=== PATIENT | female | born 1985 | race Caucasian/White ===

== ENCOUNTER 2020-09-19 11:47 | Emergency (ER) | payer SELFPAY ==
[~2020-09-19] VITALS: Ht 154.9 cm; Wt 52.2 kg
--- NOTE | 2020-09-19 11:53 | ED Chest Pain ---
General Chief Complaint: Chest Pain Stated Complaint: DIZZINESS; FATIGUE; CHEST PAIN; ANXIETY; TINGLING Source: patient Exam Limitations: no limitations History of Present Illness Date Seen by Provider: Sep 19, 2020 Time Seen by Provider: 11:52 35-year-old female history of anxiety presents with chest pain. Patient states that the pain has been present intermittently for about 3 days. At its worst she rates it 5/10 in intensity, describes it as tightness across her chest and radiates down to her left arm. No associated nausea. Pain is nonreproducible, worse with exertion, better with rest. No recent falls or injuries. Patient denies any cardiac history other than palpitations for which she has had a normal EKG. No history of heart cath or stress test. Patient denies fevers, chills, cough, shortness of air, abdominal pain, nausea, vomiting, rash, hea dache. Patient also endorses some dizziness that is worse with standing up. On arrival patient is currently chest pain-free. When asked why she came today despite 3 days of pain she said she felt very different today. Allergies and Home Medications Allergies Coded Allergies: JORGEANo Known Allergies (Verified Allergy, Unknown, 08/10/06) Patient Home Medication List Home Medication List Reviewed: Yes Review of Systems Review of Systems Constitutional: No chills, No fever EENTM: No Blurred Vision Respiratory: Denies Cough, Denies Shortness of Air Cardiovascular: Chest Pain; Denies Edema, Denies Irregular Heart Rate; Lightheadedness; Denies Palpitations Gastrointestinal: Denies Abdominal Pain, Denies Nausea, Denies Vomiting Skin: No lesions, No rash Psychiatric/Neurological: Anxiety; Denies Headache All Other Systems Reviewed Negative Unless Noted: Yes Past Inzmqxu-Khuzzi-Yngcha Hx Patient Social History Alcohol Use: Rarely Uses Smoking Status: Current Everyday Smoker Alcohol Use?: Yes Past Medical History Anxiety Family Medical History Reviewed Nursing Family Hx Physical Exam Vital Signs Vital Signs - First Documented 09/19/20 11:50 Temp 36.8 Pulse 77 Resp 16 B/P (MAP) 143/88 (106) Pulse Ox 99 O2 Delivery Room Air Capillary Refill : Height, Weight, BMI Height: '" Weight: lbs. oz. kg; BMI Method: General Appearance: No Apparent Distress, WD/WN HEENT: PERRL/EOMI, Pharynx Normal Neck: Non Tender, Supple Respiratory: Chest Non Tender, Lungs Clear, Normal Breath Sounds, No Accessory Muscle Use, No Respiratory Distress Cardiovascular: Regular Rate, Rhythm, No Edema, No Gallop, No JVD, No Murmur Gastrointestinal: Normal Bowel Sounds, Non Tender, Soft Extremity: Normal Capillary Refill, Normal Inspection, Non Tender Neurologic/Psychiatric: Alert, Oriented x3 Skin: Normal Color, Warm/Dry Lymphatic: No Adenopathy Progress/Results/Core Measures Results/Orders Lab Results Laboratory Tests Test 09/19/20 12:00 09/19/20 12:40 Range/Units White Blood Count 4.9 4.3-11.0 10^3/uL Red Blood Count 4.15 L 4.35-5.85 10^6/uL Hemoglobin 13.2 11.5-16.0 G/DL Hematocrit 39 35-52 % Mean Corpuscular Volume 94 80-99 FL Mean Corpuscular Hemoglobin 32 25-34 PG Mean Corpuscular Hemoglobin Concent 34 32-36 G/DL Red Cell Distribution Width 11.5 10.0-14.5 % Platelet Count 224 130-400 10^3/uL Mean Platelet Volume 9.9 7.4-10.4 FL Immature Granulocyte % (Auto) 0 % Neutrophils (%) (Auto) 56 42-75 % Lymphocytes (%) (Auto) 31 12-44 % Monocytes (%) (Auto) 9 0-12 % Eosinophils (%) (Auto) 4 0-10 % Basophils (%) (Auto) 0 0-10 % Neutrophils # (Auto) 2.8 1.8-7.8 X 10^3 Lymphocytes # (Auto) 1.5 1.0-4.0 X 10^3 Monocytes # (Auto) 0.4 0.0-1.0 X 10^3 Eosinophils # (Auto) 0.2 0.0-0.3 10^3/uL Basophils # (Auto) 0.0 0.0-0.1 10^3/uL Immature Granulocyte # (Auto) 0.0 0.0-0.1 10^3/uL Prothrombin Time 12.7 12.2-14.7 SEC INR Comment 0.9 0.8-1.4 Activated Partial Thromboplast Time 27 24-35 SEC Sodium Level 140 135-145 MMOL/L Potassium Level 3.8 3.6-5.0 MMOL/L Chloride Level 107 98-107 MMOL/L Carbon Dioxide Level 25 21-32 MMOL/L Anion Gap 8 5-14 MMOL/L Blood Urea Nitrogen 12 7-18 MG/DL Creatinine 0.70 0.60-1.30 MG/DL Estimat Glomerular Filtration Rate > 60 BUN/Creatinine Ratio 17 Glucose Level 86 70-105 MG/DL Calcium Level 8.9 8.5-10.1 MG/DL Corrected Calcium 8.7 8.5-10.1 MG/DL Magnesium Level 1.8 1.6-2.4 MG/DL Total Bilirubin 0.9 0.1-1.0 MG/DL Aspartate Amino Transf (AST/SGOT) 13 5-34 U/L Alanine Aminotransferase (ALT/SGPT) 9 0-55 U/L Alkaline Phosphatase 57 40-136 U/L Troponin I < 0.30 <0.30 NG/ML Pro-B-Type Natriuretic Peptide 103.9 H <75.0 PG/ML Total Protein 7.3 6.4-8.2 GM/DL Albumin 4.3 3.2-4.5 GM/DL Lipase 32 8-78 U/L Urine Color STRAW Urine Clarity CLEAR Urine pH 6.0 5-9 Urine Specific [place] <=1.005 1.016-1.022 Urine Protein NEGATIVE NEGATIVE Urine Glucose (UA) NEGATIVE NEGATIVE Urine Ketones NEGATIVE NEGATIVE Urine Nitrite NEGATIVE NEGATIVE Urine Bilirubin NEGATIVE NEGATIVE Urine Urobilinogen 0.2 < = 1.0 MG/DL Urine Leukocyte Esterase 1+ H NEGATIVE Urine RBC (Auto) 3+ H NEGATIVE Urine RBC 0-2 /HPF Urine WBC 10-25 H /HPF Urine Squamous Epithelial Cells 5-10 /HPF Urine Crystals NONE /LPF Urine Bacteria FEW H /HPF Urine Casts NONE /LPF Urine Mucus NEGATIVE /LPF Urine Culture Indicated YES Urine Test NEGATIVE NEGATIVE Urine Opiates Screen NEGATIVE NEGATIVE Urine Oxycodone Screen NEGATIVE NEGATIVE Urine Methadone Screen NEGATIVE NEGATIVE Urine Propoxyphene Screen NEGATIVE NEGATIVE Urine Barbiturates Screen NEGATIVE NEGATIVE Ur Tricyclic Antidepressants Screen NEGATIVE NEGATIVE Urine Phencyclidine Screen NEGATIVE NEGATIVE Urine Amphetamines Screen NEGATIVE NEGATIVE Urine Methamphetamines Screen NEGATIVE NEGATIVE Urine Benzodiazepines Screen NEGATIVE NEGATIVE Urine Cocaine Screen NEGATIVE NEGATIVE Urine Cannabinoids Screen NEGATIVE NEGATIVE My Orders Orders - NINO THOMPSON MD Cbc With Automated Diff (09/19/20 12:02) Magnesium (09/19/20 12:02) Chest 1 View Ap/Pa Only (09/19/20 12:02) Ekg Tracing (09/19/20 12:02) Comprehensive Metabolic Panel (09/19/20 12:02) Protime With Inr (09/19/20 12:02) Partial Thromboplastin Time (09/19/20 12:02) O2 (09/19/20 12:02) Monitor-Rhythm Ecg Trace Only (09/19/20 12:02) Aspirin Chewable Tablet (Baby Aspirin Ch (09/19/20 12:15) Ed Iv/Invasive Line Start (09/19/20 12:02) Lipase (09/19/20 12:02) Troponin I Fs (09/19/20 12:02) Probnp Fs (09/19/20 12:02) Lactated Ringers (Lr 1000 Ml Iv Solution (09/19/20 12:15) Meclizine Tablet (Antivert Tablet) (09/19/20 12:45) Ua Culture If Indicated (09/19/20 12:39) Hcg,Qualitative Urine (09/19/20 12:39) Drug Screen Stat (Urine) (09/19/20 12:39) Meclizine Tablet (Antivert Tablet) (09/19/20 12:40) Urine Culture (09/19/20 12:40) Medications Given in ED Current Medications Medications Dose Ordered Sig/Milana Route Start Time Stop Time Status Last Admin Dose Admin Aspirin 324 mg ONCE ONCE PO 09/19/20 12:15 09/19/20 12:16 DC 09/19/20 12:08 324 MG Meclizine HCl 25 mg ONCE ONCE PO 09/19/20 12:45 09/19/20 12:49 DC 09/19/20 12:49 25 MG Vital Signs/I&O 09/19/20 09/19/20 11:50 12:02 Temp 36.8 Pulse 77 Resp 16 B/P (MAP) 143/88 (106) Pulse Ox 99 O2 Delivery Room Air Room Air Progress Progress Note : Progress Note 1230 - discussed reassuring workup with patient and boyfriend. pt states still having some dizziness. normal neuro exam and normal eval. ordered meclizine 1245 -Long discussion with patient and boyfriend regarding potential causes for patient's symptoms. Meclizine did not help. Patient states that her dizziness has been present for some time and coincided with beginning of her taking her antidepressant medication several years ago. With the intermittency of the episodes and otherwise normal work-up discussed going home versus observation. Patient boyfriend both prefer to go home and she plans to follow with her primary care doctor next week. Initial ECG Impression Date: Sep 19, 2020 Initial ECG Impression Time: 11:55 Initial ECG Rhythm: Normal Sinus Initial ECG Intervals: Normal Initial ECG Intervals Rate 67, normal PA and QRS intervals Initial ECG Impression: Normal Diagnostic Imaging Diagonstic Imaging: Xray Plain Films/CT/US/NM/MRI: chest Comments negative for acute pathology Reviewed: Reviewed by Me Follow-up with PCP to: Discuss Further Options Departure Impression Primary Impression: Chest pain Qualified Codes: R07.9 - Chest pain, unspecified Additional Impression: Anxiety Disposition: 01 HOME, SELF-CARE Condition: Stable Departure-Patient Inst. Decision time for Depature: 13:10 Referrals: KATE SOW MD (PCP/Family) Primary Care Physician Patient Instructions: Anxiety, Adult (DC), Chest Pain That Is Not Caused by the Heart (DC), Dizziness, Nonvertigo, (DC) NINO THOMPSON MD Sep 19, 2020 11:53
[2020-09-19 12:07] LABS: HEMATOCRIT 39 % (35-52); HEMOGLOBIN 13.2 G/DL (11.5-16.0); MEAN CORPUSCULAR HEMOGLOBIN 32 PG (25-34); MEAN CORPUSCULAR HGB CONC 34 G/DL (32-36); MEAN CORPUSCULAR VOLUME 94 FL (80-99); WHITE BLOOD COUNT 4.9 10^3/uL (4.3-11.0)
[2020-09-19 12:08] LABS: BASOPHILS % (AUTO) 0 % (0-10); EOSINOPHILS # (AUTO) 0.2 10^3/uL (0.0-0.3); EOSINOPHILS % (AUTO) 4 % (0-10); LYMPHOCYTES # (AUTO) 1.5 X 10^3 (1.0-4.0); LYMPHOCYTES % (AUTO) 31 % (12-44); MEAN PLATELET VOLUME 9.9 FL (7.4-10.4); MONOCYTES # (AUTO) 0.4 X 10^3 (0.0-1.0); MONOCYTES % (AUTO) 9 % (0-12); NEUTROPHILS # (AUTO) 2.8 X 10^3 (1.8-7.8); NEUTROPHILS % (AUTO) 56 % (42-75); PLATELET COUNT 224 10^3/uL (130-400)
[2020-09-19] MEDS ORDERED: ASPIRIN 81 MG CHEW (CHILDREN'S ASA) PO ONE (12:15)
[2020-09-19] MEDS ORDERED: LACTATED RINGERS 1,000 ML IV SCH (12:15)
[2020-09-19 12:18] LABS: INR 0.9 (0.8-1.4); PROTHROMBIN TIME PATIENT 12.7 SEC (12.2-14.7)
[2020-09-19 12:26] LABS: ALANINE AMINOTRANSFERASE 9 U/L (0-55); ALKALINE PHOSPHATASE 57 U/L (40-136); BILIRUBIN,TOTAL 0.9 MG/DL (0.1-1.0); BUN/CREATININE RATIO 17; CALCIUM 8.9 MG/DL (8.5-10.1); CARBON DIOXIDE 25 MMOL/L (21-32); CHLORIDE 107 MMOL/L (98-107); GFR ESTIMATED > 60; GLUCOSE 86 MG/DL (70-105); MAGNESIUM 1.8 MG/DL (1.6-2.4); POTASSIUM 3.8 MMOL/L (3.6-5.0); SODIUM 140 MMOL/L (135-145)
[2020-09-19 12:27] LABS: ALBUMIN 4.3 GM/DL (3.2-4.5); LIPASE 32 U/L (8-78); TOTAL PROTEIN 7.3 GM/DL (6.4-8.2)
--- NOTE | 2020-09-19 12:27 | Diagnostic Imaging Report ---
CHEST 1 VIEW AP/PA ONLY Indication: Chest pain. Comparison: None available. Findings: No focal airspace disease in the visualized lungs. Please note that the posterior lower lobes are poorly evaluated by portable radiography. No pleural effusion or pneumothorax. Normal cardiomediastinal silhouette. Impression: 1. No acute cardiopulmonary process by portable radiography. Dictated by: Dictated on workstation # [id number]
[2020-09-19] MEDS ORDERED: MECLIZINE 25 MG (ANTIVERT) TAB ONE (12:40)
[2020-09-19] MEDS ORDERED: MECLIZINE 25 MG (ANTIVERT) TAB PO ONE (12:45)
[2020-09-19 12:49] LABS: HCG,QUALITATIVE URINE NEGATIVE (NEGATIVE)
[2020-09-19 12:52] LABS: BACTERIA,URINE FEW /HPF; BILIRUBIN,URINE NEGATIVE (NEGATIVE); CLARITY,URINE CLEAR; COLOR,URINE STRAW; GLUCOSE, URINE (UA) NEGATIVE (NEGATIVE); KETONES,URINE NEGATIVE (NEGATIVE); LEUKOCYTE ESTERASE ,URINE 1+ (NEGATIVE); NITRITE,URINE NEGATIVE (NEGATIVE); PROTEIN,URINE NEGATIVE (NEGATIVE); RBC,URINE 0-2 /HPF
[2020-09-19 12:59] LABS: AMPHETAMINE SCREEN, URINE NEGATIVE (NEGATIVE); BARBITURATE SCREEN URINE NEGATIVE (NEGATIVE); BENZODIAZEPINES SCREEN URINE NEGATIVE (NEGATIVE); CANNABINOID SCREEN, URINE NEGATIVE (NEGATIVE); COCAINE SCREEN URINE NEGATIVE (NEGATIVE); METHADONE STAT NEGATIVE (NEGATIVE); METHAMPHETAMINE SCREEN URINE S NEGATIVE (NEGATIVE); OPIATE SCREEN URINE NEGATIVE (NEGATIVE); OXYCODONE STAT NEGATIVE (NEGATIVE); PROPOXYPHENE STAT NEGATIVE (NEGATIVE); TRICYCLIC ANTIDEPRESSANTS SCRE NEGATIVE (NEGATIVE)
[2020-09-19 13:35] VITALS: BP 121/64
== END 2020-09-19 13:35 | disposition home or self-care (01) ==
LOC: EDUNIT# 11:47 → ER FS 11:51
DX: F41.9 Anxiety disorder, unspecified (principal); R42 Dizziness and giddiness; F17.200 Nicotine dependence, unspecified, uncomplicated
CPT/HCPCS: 36415; 71045; 80053; 80306; 81000; 83690; 83735; 83880; 84443; 84484; 84703; 85025; 85610; 85730; 87088; 93005; 93041

== ENCOUNTER 2022-08-03 07:57 | Emergency (ER) | payer SELFPAY ==
[~2022-08-03] VITALS: Ht 154 cm; Wt 55.4 kg
--- NOTE | 2022-08-03 08:06 | ED Psychosocial ---
General Stated Complaint: AMS History of Present Illness Date Seen by Provider: Aug 03, 2022 Time Seen by Provider: 08:01 Initial Comments 37 yo female presents because she reports that she "just does not feel right" patient reports that she just came out of a really bad relationship and has had a lot of issues with self-worth and crying. She reports that all she does is go to work and cries all day. That she was seen in the day by her work to be evaluated and checked out. Patient reports that she is taking a Plan B pill twice in the last couple months. She is used "Xanax bars" smokes marijuana while in a poor relationship. Patient denies thoughts of being suicidal homicidal. Allergies and Home Medications Allergies Coded Allergies: JROGEANo Known Allergies (Verified Allergy, Unknown, 08/10/06) Patient Home Medication List Home Medication List Reviewed: Yes Review of Systems Constitutional: No chills, No fever EENTM: no symptoms reported Respiratory: no symptoms reported Cardiovascular: no symptoms reported Gastrointestinal: no symptoms reported Genitourinary: no symptoms reported Musculoskeletal: no symptoms reported Skin: no symptoms reported Psychiatric/Neurological: Anxiety, Depressed, Emotional Problems Past Ngbwgnr-Eqpatn-Cahgln Hx Seasonal Allergies Seasonal Allergies: No Past Medical History Surgeries: Yes (bilateral breast implants) Respiratory: No Cardiac: No Neurological: No Genitourinary: No Gastrointestinal: No Musculoskeletal: No Endocrine: No HEENT: No Cancer: No Psychosocial: Yes Anxiety Integumentary: No Physical Exam Vital Signs - First Documented 08/03/22 08:23 Temp 36.4 Pulse 136 Resp 84 B/P (MAP) 136/89 (105) Pulse Ox 98 O2 Delivery Room Air Capillary Refill : Height, Weight, BMI Height: '" Weight: lbs. oz. kg; 21.00 BMI Method: General Appearance: WD/WN, no apparent distress HEENT: PERRL/EOMI Respiratory: normal breath sounds, no respiratory distress, no accessory muscle use Cardiovascular: normal peripheral pulses, regular rate, rhythm Gastrointestinal: non tender, soft Extremities: normal range of motion, non-tender, normal inspection, normal capillary refill Neurologic/Psychiatric: alert, normal mood/affect, oriented x 3 Appearance/Memory: appropriate appearance Behavior/Eye Contact: increased rate of speech Thoughts/Hallucinations: other (tearful, depressed ) Progress/Results/Core Measures Results/Orders Lab Results Laboratory Tests Test 08/03/22 08:17 08/03/22 08:30 Range/Units White Blood Count 8.2 4.3-11.0 10^3/uL Red Blood Count 4.17 3.80-5.11 10^6/uL Hemoglobin 13.8 11.5-16.0 g/dL Hematocrit 39 35-52 % Mean Corpuscular Volume 94 80-99 fL Mean Corpuscular Hemoglobin 33 25-34 pg Mean Corpuscular Hemoglobin Concent 35 32-36 g/dL Red Cell Distribution Width 11.7 10.0-14.5 % Platelet Count 256 130-400 10^3/uL Mean Platelet Volume 10.0 9.0-12.2 fL Immature Granulocyte % (Auto) 0 % Neutrophils (%) (Auto) 72 42-75 % Lymphocytes (%) (Auto) 18 12-44 % Monocytes (%) (Auto) 8 0-12 % Eosinophils (%) (Auto) 1 0-10 % Basophils (%) (Auto) 0 0-10 % Neutrophils # (Auto) 6.0 1.8-7.8 10^3/uL Lymphocytes # (Auto) 1.5 1.0-4.0 10^3/uL Monocytes # (Auto) 0.7 0.0-1.0 10^3/uL Eosinophils # (Auto) 0.1 0.0-0.3 10^3/uL Basophils # (Auto) 0.0 0.0-0.1 10^3/uL Immature Granulocyte # (Auto) 0.0 0.0-0.1 10^3/uL Sodium Level 139 135-145 MMOL/L Potassium Level 3.6 3.6-5.0 MMOL/L Chloride Level 103 98-107 MMOL/L Carbon Dioxide Level 23 21-32 MMOL/L Anion Gap 13 5-14 MMOL/L Blood Urea Nitrogen 7 7-18 MG/DL Creatinine 0.71 0.60-1.30 MG/DL Estimat Glomerular Filtration Rate 112 BUN/Creatinine Ratio 10 Glucose Level 94 70-105 MG/DL Calcium Level 9.4 8.5-10.1 MG/DL Corrected Calcium 9.2 8.5-10.1 MG/DL Magnesium Level 1.8 1.6-2.4 MG/DL Total Bilirubin 1.7 H 0.1-1.0 MG/DL Aspartate Amino Transf (AST/SGOT) 17 5-34 U/L Alanine Aminotransferase (ALT/SGPT) 15 0-55 U/L Alkaline Phosphatase 77 40-136 U/L Total Protein 7.3 6.4-8.2 GM/DL Albumin 4.3 3.2-4.5 GM/DL Serum Alcohol < 10 <10 MG/DL Urine Color YELLOW Urine Clarity CLOUDY Urine pH 5.5 5-9 Urine Specific [place] >=1.030 1.016-1.022 Urine Protein NEGATIVE NEGATIVE Urine Glucose (UA) NEGATIVE NEGATIVE Urine Ketones NEGATIVE NEGATIVE Urine Nitrite POSITIVE H NEGATIVE Urine Bilirubin NEGATIVE NEGATIVE Urine Urobilinogen 0.2 < = 1.0 MG/DL Urine Leukocyte Esterase 1+ H NEGATIVE Urine RBC (Auto) NEGATIVE NEGATIVE Urine RBC NONE /HPF Urine WBC 2-5 /HPF Urine Squamous Epithelial Cells 0-2 /HPF Urine Crystals NONE /LPF Urine Bacteria LARGE H /HPF Urine Casts NONE /LPF Urine Mucus LARGE H /LPF Urine Culture Indicated YES Urine Opiates Screen NEGATIVE NEGATIVE Urine Oxycodone Screen NEGATIVE NEGATIVE Urine Methadone Screen NEGATIVE NEGATIVE Urine Propoxyphene Screen NEGATIVE NEGATIVE Urine Barbiturates Screen NEGATIVE NEGATIVE Ur Tricyclic Antidepressants Screen NEGATIVE NEGATIVE Urine Phencyclidine Screen NEGATIVE NEGATIVE Urine Amphetamines Screen NEGATIVE NEGATIVE Urine Methamphetamines Screen NEGATIVE NEGATIVE Urine Benzodiazepines Screen NEGATIVE NEGATIVE Urine Cocaine Screen NEGATIVE NEGATIVE Urine Cannabinoids Screen NEGATIVE NEGATIVE My Orders Orders - JOHNSON,ANASTASIA L DO Alcohol (08/03/22 08:09) Cbc With Automated Diff (08/03/22 08:09) Comprehensive Metabolic Panel (08/03/22 08:09) Drug Screen Stat (Urine) (08/03/22 08:09) Magnesium (08/03/22 08:09) Thyroid Stimulating Hormone (08/03/22 08:09) Ua Culture If Indicated (08/03/22 08:09) Urine Culture (08/03/22 08:30) Vital Signs/I&O 08/03/22 08:23 Temp 36.4 Pulse 136 Resp 84 B/P (MAP) 136/89 (105) Pulse Ox 98 O2 Delivery Room Air Progress Progress Note : Progress Note Patient with a mild urinary tract infection which will be treated. Patient's symptoms likely due to some PTSD, stress anxiety and depression. We made her an appointment with behavioral health at 1 PM today. Patient was given information for follow-up. Patient's other labs were reviewed and showed no significant acute findings. Patient stable and discharged Departure Impression Primary Impression: Urinary tract infection Qualified Codes: N30.00 - Acute cystitis without hematuria Additional Impression: Acute stress reaction with predominately emotional disturbance Disposition: 01 HOME, SELF-CARE Condition: Stable Departure-Patient Inst. Referrals: KATE SOW MD (PCP) Primary Care Physician Patient Instructions: Urinary Tract Infection, Adult (DC) Add. Discharge Instructions: Please follow up with behavior health. We have made you an appt for 1 pm today. Address [address] [place] [address]. please arrive approx 30 min early for your appt. Scripts Nitrofurantoin Macrocrystal (Nitrofurantoin) 100 Mg Capsule 100 MG PO BID, #10 CAP 0 Refills Prov: ANASTASIA JOHNSON DO 08/03/22 ANASTASIA JOHNSON DO Aug 03, 2022 08:06
[2022-08-03 08:25] LABS: BASOPHILS % (AUTO) 0 % (0-10); EOSINOPHILS # (AUTO) 0.1 10^3/uL (0.0-0.3); EOSINOPHILS % (AUTO) 1 % (0-10); HEMATOCRIT 39 % (35-52); HEMOGLOBIN 13.8 g/dL (11.5-16.0); LYMPHOCYTES # (AUTO) 1.5 10^3/uL (1.0-4.0); LYMPHOCYTES % (AUTO) 18 % (12-44); MEAN CORPUSCULAR HEMOGLOBIN 33 pg (25-34); MEAN CORPUSCULAR HGB CONC 35 g/dL (32-36); MEAN CORPUSCULAR VOLUME 94 fL (80-99); MONOCYTES # (AUTO) 0.7 10^3/uL (0.0-1.0); MONOCYTES % (AUTO) 8 % (0-12); NEUTROPHILS % (AUTO) 72 % (42-75); PLATELET COUNT 256 10^3/uL (130-400); WHITE BLOOD COUNT 8.2 10^3/uL (4.3-11.0)
[2022-08-03 08:43] LABS: ALKALINE PHOSPHATASE 77 U/L (40-136); BILIRUBIN,TOTAL 1.7 MG/DL (0.1-1.0); BUN/CREATININE RATIO 10; CALCIUM 9.4 MG/DL (8.5-10.1); CARBON DIOXIDE 23 MMOL/L (21-32); CHLORIDE 103 MMOL/L (98-107); CREATININE SERUM 0.71 MG/DL (0.60-1.30); GFR ESTIMATED 112; GLUCOSE 94 MG/DL (70-105); MAGNESIUM 1.8 MG/DL (1.6-2.4); POTASSIUM 3.6 MMOL/L (3.6-5.0); SODIUM 139 MMOL/L (135-145)
[2022-08-03 08:44] LABS: ALANINE AMINOTRANSFERASE 15 U/L (0-55); ALBUMIN 4.3 GM/DL (3.2-4.5); TOTAL PROTEIN 7.3 GM/DL (6.4-8.2)
[2022-08-03 08:45] LABS: BILIRUBIN,URINE NEGATIVE (NEGATIVE); CLARITY,URINE CLOUDY; COLOR,URINE YELLOW; GLUCOSE, URINE (UA) NEGATIVE (NEGATIVE); KETONES,URINE NEGATIVE (NEGATIVE); LEUKOCYTE ESTERASE ,URINE 1+ (NEGATIVE); NITRITE,URINE POSITIVE (NEGATIVE); PH,URINE 5.5 (5-9); PROTEIN,URINE NEGATIVE (NEGATIVE)
[2022-08-03 08:52] LABS: BACTERIA,URINE LARGE /HPF; SQUAMOUS EPITHELIAL CELL,UR 0-2 /HPF
[2022-08-03 08:57] LABS: AMPHETAMINE SCREEN, URINE NEGATIVE (NEGATIVE); BARBITURATE SCREEN URINE NEGATIVE (NEGATIVE); BENZODIAZEPINES SCREEN URINE NEGATIVE (NEGATIVE); CANNABINOID SCREEN, URINE NEGATIVE (NEGATIVE); COCAINE SCREEN URINE NEGATIVE (NEGATIVE); METHADONE STAT NEGATIVE (NEGATIVE); OPIATE SCREEN URINE NEGATIVE (NEGATIVE); OXYCODONE STAT NEGATIVE (NEGATIVE); PROPOXYPHENE STAT NEGATIVE (NEGATIVE); TRICYCLIC ANTIDEPRESSANTS SCRE NEGATIVE (NEGATIVE)
[2022-08-03] MEDS ORDERED: NITR100C PO (09:14)
[2022-08-03 09:16] VITALS: BP 136/89
== END 2022-08-03 09:16 | disposition home or self-care (01) ==
LOC: EDUNIT# 07:57 → ER FS 07:59
DX: F43.0 Acute stress reaction (principal); N39.0 Urinary tract infection, site not specified; Z28.310 Unvaccinated for COVID-19
CPT/HCPCS: 36415; 80053; 80306; 81000; 83735; 84443; 85025; 87077; 87088; 99283; G0480; 80320